=== PATIENT | female | born 1945 | race Caucasian/White ===

== ENCOUNTER 2017-04-19 10:21 | Outpatient (CLI) | payer OTHER ==
[2017-04-19 11:33] LABS: eGFR (African) > 60; eGFR (Non-African) > 60
== END 2017-04-19 10:22 ==
LOC: LAB 10:21
PROVIDERS: ATTEND Family Medicine
DX: E78.5 Hyperlipidemia, unspecified (principal)
CPT/HCPCS: 36415; 80053

== ENCOUNTER 2017-04-27 08:44 | Outpatient (CLI) | payer OTHER | END 2017-04-27 08:45 | LOC: LAB 08:44 | PROVIDERS: ATTEND Family Medicine | DX: R73.9 Hyperglycemia, unspecified (principal) | CPT/HCPCS: 36415; 83036 ==

== ENCOUNTER 2017-05-28 09:04 | Day surgery (SDC) | payer OTHER ==
[~2017-05-28 09:04] MED LIST: LACTATED RINGERS 1,000 ML IV.SOLN IV ONE; PROPOFOL 500 MG/50 ML VIAL IV ONE; SALINE FLUSH 10 ML DISP.SYRIN IVF ONE
--- NOTE | 2017-05-28 11:56 | GI Report ---
REFERRING PHYSICIAN: Dr. Jefferson Fishman DAIRY TECHNOLOGIST: Frederick Toscano MD PROCEDURE MEDICATION: Propofol as per anesthesia. INDICATIONS: Patient is a 71-year-old woman referred for a screening colonoscopy. She has a previous history of severe diverticular disease and recurrent diverticulitis and eventually having surgery 7 or [address] Benavidez. Last colonoscopy was by Dr. Mcmahon. She denies any changes in her stools or blood in her stools. She does have a history of a large hiatal hernia. She has had a stricture, though she is doing well on her PPI before the evening meal. She does have central obesity. PROCEDURE PERFORMED: Colonoscopy. PROCEDURE: An Olympus pediatric colonoscope was advanced to the rectum. She does have an anastomosis in the sigmoid colon, end-to-side, which was wide open. The colonoscope was advanced all the way to the base of the cecum. There was some residual stool there, so we did lavage it and sucked it out to improve viability. The terminal ileum looks normal. On slow withdrawal, the cecum, ascending colon, and transverse colon with no obvious intraluminal lesions noted. The descending colon was connected to the sigmoid. There was no narrowing. No residual. Retroflexion of the rectum was normal. FINDINGS: Sigmoid resection, otherwise, normal colonoscopy. RECOMMENDATIONS: 1. Would increase fiber in the diet such as Benefiber, Metamucil, or Citrucel daily. 2. Consider re-looking at her colon in 10 years, unless there is some interval change or unless clinically indicated. 3. Follow up with Dr. Fishman. cc: Dr. Jefferson Fishman [facility]
== END 2017-05-28 09:05 ==
LOC: OPSURG 09:04
PROVIDERS: ATTEND Internal Medicine Gastroenterology
DX: Z12.11 Encounter for screening for malignant neoplasm of colon (principal)
CPT/HCPCS: J2704; J7120; 45378; S1016

== ENCOUNTER 2018-04-24 10:22 | Outpatient (CLI) | payer OTHER ==
[2018-04-24 18:51] LABS: BASO % 0.3 % (0.0-1.5); EOS % 0.5 % (0.0-6.8); MCH. 30.6 pg (28.0-34.0); MCV 93.6 fL (80.0-100.0); MONOCYTE % 4.4 % (0.0-11.0); MONOCYTE ABS # 0.27 thou/uL (0.00-0.90); PLATELET COUNT 282 thou/uL (130-400)
[2018-04-24 20:21] LABS: TOTAL PROTEIN 6.9 g/dL (6.0-8.5)
== END 2018-04-24 10:23 ==
LOC: LAB 10:22
PROVIDERS: ATTEND Family Medicine
DX: E78.5 Hyperlipidemia, unspecified (principal); R73.9 Hyperglycemia, unspecified; G25.0 Essential tremor; K21.0 Gastro-esophageal reflux disease with esophagitis
CPT/HCPCS: 36415; 80053; 80061; 83036; 85025

== ENCOUNTER 2019-01-29 13:44 | Outpatient (CLI) | payer OTHER ==
[2019-02-06 08:06] LABS: BASOPHILS % 0.3 % (0.0-1.5); NEUTROPHILS # 4.1 # k/uL (1.4-7.7)
[2019-02-06 08:07] LABS: eGFR (Non-African) > 60
== END 2019-01-29 13:49 | disposition home or self-care (01) ==
LOC: LAB 13:44
PROVIDERS: ATTEND Family Medicine
DX: R07.9 Chest pain, unspecified (principal)
CPT/HCPCS: 36415; 71020; 80053; 85025

== ENCOUNTER 2019-04-28 09:39 | Outpatient (CLI) | payer OTHER ==
[2019-04-28 10:18] LABS: eGFR (Non-African) > 60
[2019-04-28 10:19] LABS: HDL 66 mg/dL (>40)
== END 2019-04-28 09:42 ==
LOC: LAB 09:39
PROVIDERS: ATTEND Family Medicine
DX: E78.5 Hyperlipidemia, unspecified (principal)
CPT/HCPCS: 36415; 80053; 80061